=== PATIENT | female | born 1985 | race Caucasian/White ===

== ENCOUNTER 2016-08-27 20:37 | Emergency (ER) | payer OTHER ==
[~2016-08-27 20:37] MED LIST: PERCOCET1 TA1 PO; SPRINTEC 2828 DAY PO
--- NOTE | 2016-08-27 21:20 | ED NURSING NOTES ---
Clinical Report - Nurses [facility] [address] [place] [address] 08/27/2016 20:37 [id number] TRI[facility] Triage time 20:42 Aug 27 2016. Chief Complaint: LEFT UPPER EXTREMITY PAIN and SWELLING. Location of symptoms- left arm (pt tripped in kitched striking her left elbow on counter, cap refill less than 2 sec, + radial). Alert. No acute distress. SEPSIS SCREEN: Sepsis Screen. Negative (no infection suspected/documented). ANGIE COMA SCORE: Angie Coma Scale: 15- eyes open spontaneously (4); best verbal response- oriented x 4 (5); best motor response- obeys commands (6). --20:47 Brad Zuñiga R.N. 20:42 08/27/16. BP: 125/83. HR: 78. RR: 17. O2 saturation: 100%. Temp: 97.4 F. Pain level now: 12/15. --20:47 Brad Zuñiga R.N. Weight: 47.6 kg. Height/Length: 60 inches. BMI: 20.5. --20:44 Brad Zuñiga R.N. Medications None. --20:45 Brad Zuñiga R.N. Allergies Cefaclor. --20:45 Brad Zuñiga R.N. History Arrived by private vehicle. Historian: patient. Accompanied by family. Injury occurred. This occurred just prior to arrival. Occurred at home. Treatment MACHINE ADJUSTER LEADER: None. PAST MEDICAL HX: Tetanus status: up-to-date. Immunizations: up-to-date. Last normal menstrual period- endometrial ablation. SOCIAL HX: Never smoker. No alcohol use or drug use. No infectious disease exposure. ABUSE ASSESSMENT: No report of abuse. SELF HARM ASSESSMENT: A self harm assessment was performed. The patient answered "no" to the question "Do you have thoughts of harming or killing yourself?". NUTRITIONAL RISK ASSESSMENT: The nutritional risk assessment revealed no deficiencies. FUNCTIONAL ASSESSMENT: Functional assessment: no impairments noted. LEARNING NEEDS ASSESSMENT: The learning needs assessment revealed no barriers. SKIN INTEGRITY ASSESSMENT: Skin integrity risk assessment completed. No skin integrity risk identified. --20:47 Brad Zuñiga R.N. PROBLEMS: Pyelonephritis. Ganglion Cyst. Post-Op Complications. Contact Dermatitis. Pelvic Inflammatory Disease. Vaginitis. IBS. Dental Caries. Finger fracture. Seizure. STD - Sexually Transmitted Disease. UTI - Urinary Tract Infection. Labyrinthitis. --20:45 Brad Zuñiga R.N. ADDITIONAL SURGERIES: Ablation. Colonoscopy. Recent tooth extraction. Tubal Ligation. 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 --20:45 Brad Zuñiga R.N. Interventions ID band on patient. --20:47 Brad Zuñiga R.N. PHYSICAL ASSESSMENT Ambulatory to room. GENERAL / NEURO / PSYCH: Oriented X 4. Alert. Appears in no acute distress. Appears in pain. EXTREMITIES: Extremities exhibit normal ROM. Neuro-vascular status intact to the extremity. No upper extremity edema. Skin is non-tender on the extremities. Left elbow: tenderness. SKIN: Skin intact. Skin is warm and dry. --20:47 Brad Zuñiga R.N. NURSING PROGRESS NOTES Extremity elevated. Neuro-vascular extremity check. Reassurance given. Patient identifiers checked. Call light placed in reach. Side rails up x 1. Bed placed in lowest position. Brakes of bed on. Patient ready for evaluation- chart flagged. Patient waiting for evaluation. --20:47 Brad Zuñiga R.N. 21:22 08/27/2016 Motrin PO 800 mg given. Allergies verified and confirmed 5 rights. --21:32 Brad Zuñiga R.N. 4 inch kristopher bandage applied to left elbow by tech; distal pulses intact and sensation intact (2124). --21:32 Becky Carter 21:23 08/27/2016 Hydrocodone-APAP (Hydrocodone-Acetaminophen) PO 5/325 mg Tablets 1 tab given. Allergies verified, confirmed 5 rights and sedative warning given to the patient. --21:33 Brad Zuñiga R.N. ( 2140 POC-urine hCG : Negative). --21:44 Becky Carter. DISPOSITION / DISCHARGE Condition at departure: improved. No learning barriers present. Discharge instructions provided and reviewed with the patient. Reviewed medication(s) side effects and dosing information. Activity restrictions (minimal use of injured extremity) reviewed (per PA). Patient verbalized understanding. Written instructions provided in Jordanian. The patient was discharged by the physician junior assistant manager. She was discharged home and accompanied by polytechnic teacher. She left the Emergency Department ambulatory and via private vehicle. Environmental Health Aide driving. --21:46 Brad Zuñiga R.N. 21:45 08/27/16. BP: 119/79. HR: 72. RR: 15. O2 saturation: 100%. Temp: deferred. Pain level now: 09/14. --21:46 Brad Zuñiga R.N. Locked/Released at 08/27/2016 23:21 by Brad Zuñiga R.N.
--- NOTE | 2016-08-27 21:20 | ED CLINICAL REPORT ---
Clinical Report - Physicians/Mid Levels [facility] [address] [place] [address] 08/27/2016 20:37 [id number] Time Seen: 20:59 Aug 27 2016. Arrived- By private vehicle. HISTORY OF PRESENT ILLNESS Chief Complaint: Injury to the left elbow. The injury happened just prior to arrival. Occurred at home. Patient is experiencing moderate pain. Patient denies injury to the head or neck. ( Patient fell onto a counter just prior to arrival. Cflzq-jxet-hzifmjrh denies prior injury to the left elbow. No medications prior to arrival. No other injuries. Pain with movement). REVIEW OF SYSTEMS No tingling. All systems otherwise negative, except as recorded above. PAST HISTORY The patient has not had a prior injury to the same area. Tetanus immunization status is up-to-date. SOCIAL HISTORY Never smoker. No alcohol use or drug use. ADDITIONAL NOTES The nursing notes have been reviewed. PHYSICAL EXAM Vital Signs: 08/27/2016 20:42 BP: 125/83. HR: 78. RR: 17. O2 saturation: 100%. Temp: 97.4 F. Pain level now: 9/10. Appearance: Alert. Head: Head atraumatic. CVS: Normal heart rate and rhythm. Heart sounds normal. Respiratory: No respiratory distress. Breath sounds normal. No chest wall injury. Skin: Skin warm. Normal skin color. Extremities: Left elbow: mild tenderness located in the area of the olecranon. No abrasion, puncture wound or deformity. Left forearm. Left wrist. No tenderness or swelling. Neuro, Vascular and Tendons: Vascular status intact. Capillary refill not prolonged. Motor intact. No functional tendon deficit. Neuro: Oriented X 3. No motor deficit. LABS, X-RAYS, AND EKG Note - Tests: (left elbow. Negative as reviewed with Dr. Pierre.). PROGRESS AND PROCEDURES Course of Care: Patient in the emergency department with no signs of fracture. Pain with extension. Patient with no other injuries. No signs of dislocation. No signs of abrasion or laceration. No other injuries. Enio wrap applied to the left elbow. Patient is stable. Physical exam findings are improved. Symptoms better. Patient/family counseled. Disposition: Discharged. Condition: good. CLINICAL IMPRESSION Contusion to the left elbow. INSTRUCTIONS Apply ice. Elevate affected areas above chest level. Limit use of your hand. Prescription Medications: Ibuprofen 800 mg tablets: take 1 tablet orally every 8 hours for 5 days, as needed for pain. Dispense fifteen (15). No refill. Follow-up: Follow up with your doctor in six days if not well. Understanding of the discharge instructions verbalized by patient. (Electronically signed by Nona Jerry P.A.-C 08/27/2016 21:52)
--- NOTE | 2016-08-27 21:20 | ED ORDER SUMMARY ---
..... Patient: LUCAS PEREZ OrderSheet [facility] VisitID: [id number] [place] [address] 30y, F Registration Date/Time: 08/27/2016 ORDER SHEET Weight: 47.6 kg Allergies: Cefaclor GENERAL ORDERS: Elbow 3 or 4V Left Urgent (20:55 08/27/2016 EKoroleva P.A.-C) (Ack 21:01 AMcQuoid ER Tech1) (21:33 KPage-Kuchan R.N.) POC - Urine hCG (20:55 08/27/2016 EKoroleva P.A.-C) (21:34 KPage-Kuchan R.N.) Warm blanket (20:55 08/27/2016 EKoroleva P.A.-C) (20:58 CHategekimana) Ice (20:55 08/27/2016 EKoroleva P.A.-C) (20:58 CHategekimana) Enio Wrap (21:17 08/27/2016 EKoroleva P.A.-C) (21:30 CHategekimana) MEDICATION ORDERS: Motrin PO 800 mg (NOW) (20:55 08/27/2016 EKoroleva P.A.-C) (Ack 21:01 KPage-Kuchan R.N.) (21:32 KPage-Kuchan R.N.) Hydrocodone-APAP PO 5/325 mg (NOW, HIGH ALERT MEDICATION) (20:55 08/27/2016 EKoroleva P.A.-C) (Ack 21:01 KPage-Kuchan R.N.) (21:33 KPage-Kuchan R.N.) IV FLUIDS: ORDER SHEET NOTES: [Electronically signed by Nona JerryA.-C (21:52 08/27/2016)] [Electronically signed by Brad Zuñiga R.N. (23:21 08/27/2016)] [Electronically locked/signed by Brad Zuñiga R.N. (23:21 08/27/2016)]
--- NOTE | 2016-08-27 21:20 | ED CLINICAL REPORT ---
Clinical Report - Physicians/Mid Levels [facility] [address] [place] [address] 08/27/2016 20:37 [id number] Time Seen: 20:59 Aug 27 2016. Arrived- By private vehicle. HISTORY OF PRESENT ILLNESS Chief Complaint: Injury to the left elbow. The injury happened just prior to arrival. Occurred at home. Patient is experiencing moderate pain. Patient denies injury to the head or neck. ( Patient fell onto a counter just prior to arrival. Sfjaq-axtf-osgjjoct denies prior injury to the left elbow. No medications prior to arrival. No other injuries. Pain with movement). REVIEW OF SYSTEMS No tingling. All systems otherwise negative, except as recorded above. PAST HISTORY The patient has not had a prior injury to the same area. Tetanus immunization status is up-to-date. SOCIAL HISTORY Never smoker. No alcohol use or drug use. ADDITIONAL NOTES The nursing notes have been reviewed. PHYSICAL EXAM Vital Signs: 08/27/2016 20:42 BP: 125/83. HR: 78. RR: 17. O2 saturation: 100%. Temp: 97.4 F. Pain level now: 9/10. Appearance: Alert. Head: Head atraumatic. CVS: Normal heart rate and rhythm. Heart sounds normal. Respiratory: No respiratory distress. Breath sounds normal. No chest wall injury. Skin: Skin warm. Normal skin color. Extremities: Left elbow: mild tenderness located in the area of the olecranon. No abrasion, puncture wound or deformity. Left forearm. Left wrist. No tenderness or swelling. Neuro, Vascular and Tendons: Vascular status intact. Capillary refill not prolonged. Motor intact. No functional tendon deficit. Neuro: Oriented X 3. No motor deficit. LABS, X-RAYS, AND EKG Note - Tests: (left elbow. Negative as reviewed with Dr. Pierre.). PROGRESS AND PROCEDURES Course of Care: Patient in the emergency department with no signs of fracture. Pain with extension. Patient with no other injuries. No signs of dislocation. No signs of abrasion or laceration. No other injuries. Enio wrap applied to the left elbow. Patient is stable. Physical exam findings are improved. Symptoms better. Patient/family counseled. Disposition: Discharged. Condition: good. CLINICAL IMPRESSION Contusion to the left elbow. INSTRUCTIONS Apply ice. Elevate affected areas above chest level. Limit use of your hand. Prescription Medications: Ibuprofen 800 mg tablets: take 1 tablet orally every 8 hours for 5 days, as needed for pain. Dispense fifteen (15). No refill. Follow-up: Follow up with your doctor in six days if not well. Understanding of the discharge instructions verbalized by patient. (Electronically signed by Nona Jerry P.A.-C 08/27/2016 21:52)
--- NOTE | 2016-08-27 21:20 | ED ORDER SUMMARY ---
..... Patient: LUCAS PEREZ OrderSheet [facility] VisitID: [id number] [place] [address] 30y, F Registration Date/Time: 08/27/2016 ORDER SHEET Weight: 47.6 kg Allergies: Cefaclor GENERAL ORDERS: Elbow 3 or 4V Left Urgent (20:55 08/27/2016 EKoroleva P.A.-C) (Ack 21:01 AMcQuoid ER Tech1) (21:33 KPage-Kuchan R.N.) POC - Urine hCG (20:55 08/27/2016 EKoroleva P.A.-C) (21:34 KPage-Kuchan R.N.) Warm blanket (20:55 08/27/2016 EKoroleva P.A.-C) (20:58 CHategekimana) Ice (20:55 08/27/2016 EKoroleva P.A.-C) (20:58 CHategekimana) Enio Wrap (21:17 08/27/2016 EKoroleva P.A.-C) (21:30 CHategekimana) MEDICATION ORDERS: Motrin PO 800 mg (NOW) (20:55 08/27/2016 EKoroleva P.A.-C) (Ack 21:01 KPage-Kuchan R.N.) (21:32 KPage-Kuchan R.N.) Hydrocodone-APAP PO 5/325 mg (NOW, HIGH ALERT MEDICATION) (20:55 08/27/2016 EKoroleva P.A.-C) (Ack 21:01 KPage-Kuchan R.N.) (21:33 KPage-Kuchan R.N.) IV FLUIDS: ORDER SHEET NOTES: [Electronically signed by Nona JerryA.-C (21:52 08/27/2016)] [Electronically signed by Brad Zuñiga R.N. (23:21 08/27/2016)] [Electronically locked/signed by Brad Zuñiga R.N. (23:21 08/27/2016)]
--- NOTE | 2016-08-27 21:20 | ED NURSING NOTES ---
Clinical Report - Nurses [facility] [address] [place] [address] 08/27/2016 20:37 [id number] Triage time 20:42 Aug 27 2016. Chief Complaint: LEFT UPPER EXTREMITY PAIN and SWELLING. Location of symptoms- left arm (pt tripped in kitched striking her left elbow on counter, cap refill less than 2 sec, + radial). Alert. No acute distress. SEPSIS SCREEN: Sepsis Screen. Negative (no infection suspected/documented). ANGIE COMA SCORE: Angie Coma Scale: 15- eyes open spontaneously (4); best verbal response- oriented x 4 (5); best motor response- obeys commands (6). --20:47 Brad Zuñiga R.N. 20:42 08/27/16. BP: 125/83. HR: 78. RR: 17. O2 saturation: 100%. Temp: 97.4 F. Pain level now: 12/15. --20:47 Brad Zuñiga R.N. Weight: 47.6 kg. Height/Length: 60 inches. BMI: 20.5. --20:44 Brad Zuñiga R.N. Medications None. --20:45 Brad Zuñiga R.N. Allergies Cefaclor. --20:45 Brad Zuñiga R.N. History Arrived by private vehicle. Historian: patient. Accompanied by family. Injury occurred. This occurred just prior to arrival. Occurred at home. Treatment TRANSPLANTER: None. PAST MEDICAL HX: Tetanus status: up-to-date. Immunizations: up-to-date. Last normal menstrual period- endometrial ablation. SOCIAL HX: Never smoker. No alcohol use or drug use. No infectious disease exposure. ABUSE ASSESSMENT: No report of abuse. SELF HARM ASSESSMENT: A self harm assessment was performed. The patient answered "no" to the question "Do you have thoughts of harming or killing yourself?". NUTRITIONAL RISK ASSESSMENT: The nutritional risk assessment revealed no deficiencies. FUNCTIONAL ASSESSMENT: Functional assessment: no impairments noted. LEARNING NEEDS ASSESSMENT: The learning needs assessment revealed no barriers. SKIN INTEGRITY ASSESSMENT: Skin integrity risk assessment completed. No skin integrity risk identified. --20:47 Brad Zuñiga R.N. PROBLEMS: Pyelonephritis. Ganglion Cyst. Post-Op Complications. Contact Dermatitis. Pelvic Inflammatory Disease. Vaginitis. IBS. Dental Caries. Finger fracture. Seizure. STD - Sexually Transmitted Disease. UTI - Urinary Tract Infection. Labyrinthitis. --20:45 Brad Zuñiga R.N. ADDITIONAL SURGERIES: Ablation. Colonoscopy. Recent tooth extraction. Tubal Ligation. 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 --20:45 Brad Zuñiga R.N. Interventions ID band on patient. --20:47 Brad Zuñiga R.N. PHYSICAL ASSESSMENT Ambulatory to room. GENERAL / NEURO / PSYCH: Oriented X 4. Alert. Appears in no acute distress. Appears in pain. EXTREMITIES: Extremities exhibit normal ROM. Neuro-vascular status intact to the extremity. No upper extremity edema. Skin is non-tender on the extremities. Left elbow: tenderness. SKIN: Skin intact. Skin is warm and dry. --20:47 Brad Zuñiga R.N. NURSING PROGRESS NOTES Extremity elevated. Neuro-vascular extremity check. Reassurance given. Patient identifiers checked. Call light placed in reach. Side rails up x 1. Bed placed in lowest position. Brakes of bed on. Patient ready for evaluation- chart flagged. Patient waiting for evaluation. --20:47 Brad Zuñiga R.N. 21:22 08/27/2016 Motrin PO 800 mg given. Allergies verified and confirmed 5 rights. --21:32 Brad Zuñiga R.N. 4 inch kristopher bandage applied to left elbow by tech; distal pulses intact and sensation intact (2124). --21:32 Becky Carter 21:23 08/27/2016 Hydrocodone-APAP (Hydrocodone-Acetaminophen) PO 5/325 mg Tablets 1 tab given. Allergies verified, confirmed 5 rights and sedative warning given to the patient. --21:33 Brad Zuñiga R.N. ( 2140 POC-urine hCG : Negative). --21:44 Becky Carter. DISPOSITION / DISCHARGE Condition at departure: improved. No learning barriers present. Discharge instructions provided and reviewed with the patient. Reviewed medication(s) side effects and dosing information. Activity restrictions (minimal use of injured extremity) reviewed (per PA). Patient verbalized understanding. Written instructions provided in Zimbabwean. The patient was discharged by the physician media center assistant. She was discharged home and accompanied by traffic superintendent. She left the Emergency Department ambulatory and via private vehicle. Veneer Repairer Machine driving. --21:46 Brad Zuñiga R.N. 21:45 08/27/16. BP: 119/79. HR: 72. RR: 15. O2 saturation: 100%. Temp: deferred. Pain level now: 09/14. --21:46 Brad Zuñiga R.N. Locked/Released at 08/27/2016 23:21 by Brad Zuñiga R.N.
--- NOTE | 2016-08-27 23:22 | ED MED RECONCILIATION SUMMARY ---
Patient: LUCAS PEREZ Medication Reconciliation Report [facility] VisitID: [id number] [address] [place] [address] 30y, F Registration Date/Time: 08/27/2016 Weight: 47.6 kg Height/Length: 60 in. BMI: 20.5 ALLERGIES: Cefaclor The patient's Home Medications are listed below: NONE. The source(s) of the original Home Medication information: Not obtained. The following Medications were given to the patient in the Emergency Department: Motrin [PO] PO 800 mg, administered: 08/27/2016 9:22:00 PM Hydrocodone-APAP [PO] PO 1 tab, administered: 08/27/2016 9:23:00 PM The following Medications were prescribed to the patient: Ibuprofen 800 mg tablets: take 1 tablet orally every 8 hours for 5 days, as needed for pain. Dispense fifteen (15). No refill. -- Nona Jerry, PBenABen-C
--- NOTE | 2016-08-27 23:22 | ED MED RECONCILIATION SUMMARY ---
Patient: LUCAS PEREZ Medication Reconciliation Report [facility] VisitID: [id number] [address] [place] [address] 30y, F Registration Date/Time: 08/27/2016 Weight: 47.6 kg Height/Length: 60 in. BMI: 20.5 ALLERGIES: Cefaclor The patient's Home Medications are listed below: NONE. The source(s) of the original Home Medication information: Not obtained. The following Medications were given to the patient in the Emergency Department: Motrin [PO] PO 800 mg, administered: 08/27/2016 9:22:00 PM Hydrocodone-APAP [PO] PO 1 tab, administered: 08/27/2016 9:23:00 PM The following Medications were prescribed to the patient: Ibuprofen 800 mg tablets: take 1 tablet orally every 8 hours for 5 days, as needed for pain. Dispense fifteen (15). No refill. -- Nona Jerry, PBenABen-C
--- NOTE | 2016-08-27 23:22 | ED MAR SUMMARY ---
..... Medication Administration Record [facility] [address] [place] [address] Patient: LUCAS PEREZ Visit ID: [id number] 30y, F Weight: 47.6 kg Height/Length: 60 in BMI: 20.5 ALLERGIES: Cefaclor Given :08/27/2016 Brad Zuñiag, R.NBen Medication Administered: MOTRIN [PO], Dose: 800 mg PO. Medication Ordered: Motrin PO 800 mg (NOW). Given :08/27/2016 Brad Zuñiga, R.N. Medication Administered: HYDROCODONE-APAP [PO] (HYDROCODONE-ACETAMINOPHEN), Dose: 1 tab 5/325 mg Tablets PO. Medication Ordered: Hydrocodone-APAP PO 5/325 mg (NOW, HIGH ALERT MEDICATION).
--- NOTE | 2016-08-27 23:22 | ED MAR SUMMARY ---
..... Medication Administration Record [facility] [address] [place] [address] Patient: LUCAS PEREZ Visit ID: [id number] 30y, F Weight: 47.6 kg Height/Length: 60 in BMI: 20.5 ALLERGIES: Cefaclor Given :08/27/2016 Brad Zuñiga, R.NBen Medication Administered: MOTRIN [PO], Dose: 800 mg PO. Medication Ordered: Motrin PO 800 mg (NOW). Given :08/27/2016 Brad Zuñiga, R.N. Medication Administered: HYDROCODONE-APAP [PO] (HYDROCODONE-ACETAMINOPHEN), Dose: 1 tab 5/325 mg Tablets PO. Medication Ordered: Hydrocodone-APAP PO 5/325 mg (NOW, HIGH ALERT MEDICATION).
--- NOTE | 2016-08-27 23:22 | ED DISCHARGE INSTRUCTIONS ---
Patient: LUCAS PEREZ General Instructions [facility] VisitID: [id number] [place] [address] 30y, F Registration Date/Time: 08/27/2016 Contusion to the left elbow. INSTRUCTIONS Apply ice. Elevate affected areas above chest level. Limit use of your hand. Prescription Medications: Ibuprofen 800 mg tablets: take 1 tablet orally every 8 hours for 5 days, as needed for pain. Dispense fifteen (15). No refill. Follow-up: Follow up with your doctor in six days if not well. Understanding of the discharge instructions verbalized by patient. ADDITIONAL INFORMATION Contusion:Upper Extremity You have a contusion of your upper extremity (arm, wrist, hand or fingers). This causes local pain, swelling and sometimes bruising. There are no broken bones. This injury takes a few days to a few weeks to heal. A sling may be provided for comfort and arm support. Home Care: 1) Keep your arm elevated to reduce pain and swelling. This is very important during the first 48 hours. 2) Apply an ice pack (ice cubes in a plastic bag, wrapped in a towel) over the injured area for 20 minutes every 1-2 hours the first day for pain relief. Continue this 3-4 times a day until the pain and swelling goes away. 3) You may use acetaminophen (Tylenol) or ibuprofen (Motrin, Advil) to control pain, unless another pain medicine was prescribed. [ NOTE : If you have chronic liver or kidney disease or ever had a stomach ulcer or GI bleeding, talk with your doctor before using these medicines.] 4) If a sling was provided, you may remove it to shower or bathe. Do not wear it for more than one week or it may cause joint stiffness. Follow Up with your doctor or this facility if you are not starting to improve within the next THREE days. [NOTE: If X-rays were taken, they will be reviewed by a radiologist. You will be notified of any new findings that may affect your care.] Get Prompt Medical Attention if any of the following occur: -- Pain or swelling increases -- Redness, warmth or drainage -- Hand or fingers becomes cold, blue, numb or tingly Ibuprofen Oral tablet What is this medicine? IBUPROFEN (eye BYOO proe fen) is a non-steroidal anti-inflammatory drug (NSAID). It is used for dental pain, fever, headaches or migraines, osteoarthritis, rheumatoid arthritis, or painful monthly periods. It can also relieve minor aches and pains caused by a cold, flu, or sore throat. How should I use this medicine? Take this medicine by mouth with a glass of water. Follow the directions on the prescription label. Take this medicine with food if your stomach gets upset. Try to not lie down for at least 10 minutes after you take the medicine. Take your medicine at regular intervals. Do not take your medicine more often than directed. A special MedGuide will be given to you by the pharmacist with each prescription and refill. Be sure to read this information carefully each time. Talk to your lpn per diem regarding the use of this medicine in children. Special care may be needed. What side effects may I notice from receiving this medicine? Side effects that you should report to your doctor or health customer care associate as soon as possible: allergic reactions like skin rash, itching or hives, swelling of the face, lips, or tongue black or bloody stools, blood in the urine or in vomit breathing problems changes in vision chest pain general ill feeling or flu-like symptoms nausea or vomiting redness, blistering, peeling or loosening of the skin, including inside the mouth slurred speech or weakness on one side of the body stomach pain unexplained weight gain or swelling unusually weak or tired yellowing of eyes or skin Side effects that usually do not require medical attention (report to your doctor or health customer care associate if they continue or are bothersome): constipation or diarrhea dizziness gas or heartburn stomach upset What may interact with this medicine? Do not take this medicine with any of the following medications: cidofovir ketorolac methotrexate pemetrexed This medicine may also interact with the following medications: alcohol aspirin diuretics lithium other drugs for inflammation like prednisone warfarin What if I miss a dose? If you miss a dose, take it as soon as you can. If it is almost time for your next dose, take only that dose. Do not take double or extra doses. Where should I keep my medicine? Keep out of the reach of children. Store at room temperature between 15 and 30 degrees C (59 and 86 degrees F). Keep container tightly closed. Throw away any unused medicine after the expiration date. What should I tell my health care provider before I take this medicine? They need to know if you have any of these conditions: asthma cigarette smoker drink more than 3 alcohol containing drinks a day heart disease or circulation problems such as heart failure or leg edema (fluid retention) high blood pressure kidney disease liver disease stomach bleeding or ulcers an unusual or allergic reaction to ibuprofen, aspirin, other NSAIDS, other medicines, foods, dyes, or preservatives or trying to get breast-feeding What should I watch for while using this medicine? Tell your doctor or healthcare professional if your symptoms do not start to get better or if they get worse. This medicine does not prevent heart attack or stroke. In fact, this medicine may increase the chance of a heart attack or stroke. The chance may increase with longer use of this medicine and in people who have heart disease. If you take aspirin to prevent heart attack or stroke, talk with your doctor or health customer care associate. Do not take other medicines that contain aspirin, ibuprofen, or naproxen with this medicine. Side effects such as stomach upset, nausea, or ulcers may be more likely to occur. Many medicines available without a prescription should not be taken with this medicine. This medicine can cause ulcers and bleeding in the stomach and intestines at any time during treatment. Ulcers and bleeding can happen without warning symptoms and can cause . To reduce your risk, do not smoke cigarettes or drink alcohol while you are taking this medicine. You may get drowsy or dizzy. Do not drive, use machinery, or do anything that needs mental alertness until you know how this medicine affects you. Do not stand or sit up quickly, especially if you are an older patient. This reduces the risk of dizzy or fainting spells. This medicine can cause you to bleed more easily. Try to avoid damage to your teeth and gums when you brush or floss your teeth. You have been given the following additional information: Contusion, Upper Extremity Ibuprofen Oral tablet Limit use of your hand. (Electronically signed by Nona Jerry P.A.-C 08/27/2016 21:52)
--- NOTE | 2016-08-27 23:43 | DIAGNOSTIC IMAGING REPORT ---
PROCEDURE: XR ELBOW 3 OR 4 VIEWS - LEFT INDICATION: TRAUMA/INJURY TECHNIQUE: Four views. COMPARISON: None. FINDINGS: Osseous structures and joint spaces are normal. No evidence of an effusion. IMPRESSION: 1. Normal left elbow.
== END 2016-08-27 21:44 | disposition home or self-care (01) ==
LOC: ED SRH 20:37
DX: S50.02XA Contusion of left elbow, initial encounter (principal); W01.198A Fall on same level from slipping, tripping and stumbling with subsequent striking against other object, initial encounter; Y93.9 Activity, unspecified; Y92.000 Kitchen of unspecified non-institutional (private) residence as the place of occurrence of the external cause; Y99.9 Unspecified external cause status; Z88.1 Allergy status to other antibiotic agents